=== PATIENT | female | born 1960 | race Two or more races ===

== ENCOUNTER 2018-02-15 18:57 | Emergency (ER) | payer OTHER ==
[~2018-02-15] VITALS: Ht 157.5 cm; Wt 136.1 kg
[2018-02-15] MEDS ORDERED: LOSARTAN-HCTZ1 EAC1 (19:24)
== END 2018-02-15 22:15 | disposition home or self-care (01) ==
LOC: ER 18:57
DX: E07.89 Other specified disorders of thyroid (principal); F06.4 Anxiety disorder due to known physiological condition

== ENCOUNTER 2018-05-13 15:50 | Emergency (ER) | payer OTHER ==
[~2018-05-13] VITALS: Ht 157.5 cm; Wt 136.1 kg
[~2018-05-13 15:50] MED LIST: LOSARTAN-HCTZ1 EAC1
[2018-05-13] MEDS ORDERED: LEXAPRO5 MG (16:19)
[2018-05-13] MEDS ORDERED: TAPAZOLE5 MG (16:19)
== END 2018-05-13 20:18 | disposition home or self-care (01) ==
LOC: ER 15:50
DX: K21.9 Gastro-esophageal reflux disease without esophagitis (principal); F32.89 Other specified depressive episodes